=== PATIENT | female | born 1930 | race Caucasian/White ===

== ENCOUNTER 2018-07-12 16:32 | Emergency (ER) | payer OTHER ==
[~2018-07-12] VITALS: Ht 152.4 cm; Wt 61.2 kg
[~2018-07-12 16:32] MED LIST: ASPIR 8181 MG PO; DICLOFENAC POTA50 MG PO; ELIQUIS5 MG PO; HYDROCHLOROTHIA25 MG PO; LEVEMIR100 U/M1 SC; LIPITOR40 MG PO; LISINOPRIL10 MG PO; NOVOLOG100 U/ML SC; TOPROL XL25 M1 PO; ULTRAM50 MG PO
== END 2018-07-12 22:37 | disposition home or self-care (01) ==
LOC: ER 16:32
DX: E11.65 Type 2 diabetes mellitus with hyperglycemia (principal); L03.311 Cellulitis of abdominal wall; N39.0 Urinary tract infection, site not specified; R50.9 Fever, unspecified